=== PATIENT | female | born 1985 | race Caucasian/White ===

== ENCOUNTER 2024-09-25 23:23 | Inpatient (IN) | payer OTHER ==
--- OUTSIDE RECORDS SUMMARY | 2024-09-25 23:27 | XMS REPORT | Continuity of Care Document ---
Author Name Unknown Address [address] [place] [address] [facility] thconnect Address [address] [place] [address] Care Team Providers Care Production Tech Name Role Phone TYRA MILLER Primary Care Physician Unavailab le Tyra Miller Attending Clinician Unavailable RADIOLOGY Attending Clinician Unavailable Radiology Attending Clinician Unavailable TYRA MILLER Admitting Clinician Unavailable Payers Payer Name Policy Type Policy Number Effective Date Expirati on Date Source [employer] [id number] [facility] - OUT OF STATE [id number] 2023 00:00:00 Problems Condition Name Condition Details Condition Category Status Onset Date Resolution Date Last Treatment Date Treating Clinician Comments Source [id number] Mild episode of recurrent major depressive disorder Problem [facility] [id number] Mixed hyperlipid emia Problem [facility] [id number] Dysmenorrh ea Problem [facility] Hypothyroi dism Hypothyroi dism, unspecifie d type Problem [facility] [id number] Abnormal mammogram Problem [facility] Hyperglyce deshawn due to type 2 diabetes mellitus Type 2 diabetes mellitus with hyperglyce deshawn Problem [facility] Polyneurop athy due to type 2 diabetes 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 Problem [facility] [id number] Other chronic pain Problem [facility] [id number] Iron deficiency anemia due to chronic blood loss Problem [facility] Essential hypertensi on Essential (primary) hypertensi on Problem [facility] [id number] Fibromyalg ia Problem [facility] Allergies, Adverse Reactions, Alerts Allergy Name Allergy Type Status Severity Reaction(s) Onset Date Inactive Date Treating Clinician Comments Source NO KNOWN ALLERGIE S [facility]on amoxicil levon Active Unknown [facility] Social History Social Habit Start Date Stop Date Quantity Comments Source Sexual orientation U [facility] History of Tobacco Use [facility] Sex assigned at 1985 00:00:00 1985 00:00:00 [facility] Smoking Status Start Date Stop Date Source Tobacco smoking consumption unknown [facility] Never Smoker [facility] Medications Ordered Medication Name Filled Medication Name Start Date Stop Date Current Medication? Ordering Clinician Indication Dosage Frequency Signature (SIG) Comments Components Source Ferrous Sulfate 325 (65 Fe) MG Ferrous Sulfate 325 (65 Fe) MG 08-18 00:00: 00 No 1{table t} QD Ferrous Sulfate 325 (65 Fe) MG Gabapentin 300 MG Gabapentin 300 MG No 1{capsu le} QD Gabapentin 300 MG Amitriptyli ne HCl 25 MG Amitriptyli ne HCl 25 MG No 1{table t_at_be dtime} QD Amitriptyl ine HCl 25 MG Losartan Potassium 100 MG Losartan Potassium 100 MG No 1{table t} QD Losartan Potassium 100 MG Rexulti 1 mg Rexulti 1 mg No 1{table t} QD Rexulti 1 mg Droplet [place] 32G X 4 MM Droplet [place] 32G X 4 MM No Droplet [place] 32G X 4 MM Rosuvastati n Calcium 5 MG Rosuvastati n Calcium 5 MG No 1{table t} QD Rosuvastat in Calcium 5 MG Levothyroxi ne Sodium 25 MCG Levothyroxi ne Sodium 25 MCG No QD Levothyrox ine Sodium 25 MCG Mounjaro 15 MG/0.5ML Mounjaro 15 MG/0.5ML No Mounjaro 15 MG/0.5ML Metoprolol Succinate ER 50 MG Metoprolol Succinate ER 50 MG No 1{table t} QD Metoprolol Succinate ER 50 MG Lidocaine 5 % Lidocaine 5 % No Lidocaine 5 % metFORMIN HCl ER 500 mg metFORMIN HCl ER 500 mg No BID metFORMIN HCl ER 500 mg DULoxetine HCl 60 MG DULoxetine HCl 60 MG No 1{capsu le} QD DULoxetine HCl 60 MG Immunizations Ordered Immunization Name Filled Immunization Name Date Status Comments Source Fluarix (IIV4) - SDS - 0.5mL Fluarix (IIV4) - SDS - 0.5mL Unknown Completed [facility] Flucelvax (ccIIV4) - SDS - 0.5mL Flucelvax (ccIIV4) - SDS - 0.5mL Unknown Completed [facility] Adacel (Tdap) Adacel (Tdap) Unknown Completed [facility] Fluarix (IIV4) - SDS - 0.5mL Fluarix (IIV4) - SDS - 0.5mL Unknown Completed [facility] Flucelvax (ccIIV4) - SDS - 0.5mL Flucelvax (ccIIV4) - SDS - 0.5mL Unknown Completed [facility] Boostrix (Tdap) Boostrix (Tdap) Unknown Completed [facility] Fluarix (IIV4) - SDS - 0.5mL Fluarix (IIV4) - SDS - 0.5mL Unknown Completed [facility] Flucelvax (ccIIV4) - SDS - 0.5mL Flucelvax (ccIIV4) - SDS - 0.5mL Unknown Completed [facility] Boostrix (Tdap) Boostrix (Tdap) Unknown Completed [facility] Fluarix (IIV4) - SDS - 0.5mL Fluarix (IIV4) - SDS - 0.5mL Unknown Completed [facility] Flucelvax (ccIIV4) - SDS - 0.5mL Flucelvax (ccIIV4) - SDS - 0.5mL Unknown Completed [facility] Adacel (Tdap) Adacel (Tdap) Unknown Completed [facility] Fluarix (IIV4) - SDS - 0.5mL Fluarix (IIV4) - SDS - 0.5mL Unknown Completed [facility] Flucelvax (ccIIV4) - SDS - 0.5mL Flucelvax (ccIIV4) - SDS - 0.5mL Unknown Completed [facility] Boostrix (Tdap) Boostrix (Tdap) Unknown Completed [facility] Vital Signs Vital Name Observation Time Observation Value Comments S mariluce height 2024-07-19 09:20:00 66 [in_i] Commo n [facility] weight 2024-07-19 09:20:00 163 [lb_av] Comm on [facility] temperature 2024-07-19 09:20:00 97.3 [degF] Com [facility] bmi 2024-07-19 09:20:00 26.31 kg/m2 Comm on [facility] oximetry 2024-07-19 09:20:00 [facility] 09:20:00 16 /min [facility] blood pressure systolic 2024-07-19 09:20:00 120 mm[Hg] [facility] blood pressure diastolic 2024-07-19 09:20:00 70 mm[Hg] [facility] height 2024-05-31 09:20:00 66 [in_i] Commo n [facility] weight 2024-05-31 09:20:00 153 [lb_av] Comm on [facility] temperature 2024-05-31 09:20:00 97.1 [degF] Com [facility] bmi 2024-05-31 09:20:00 24.69 kg/m2 Comm on [facility] oximetry 2024-05-31 09:20:00 97 % Commo n [facility] respiratory rate 2024-05-31 09:20:00 16 /min [facility] blood pressure systolic 2024-05-31 09:20:00 112 mm[Hg] [facility] blood pressure diastolic 2024-05-31 09:20:00 78 mm[Hg] [facility] height 2024-05-31 09:20:00 66 [in_i] Commo n [facility] weight 2024-05-31 09:20:00 153 [lb_av] Comm on [facility] temperature 2024-05-31 09:20:00 97.1 [degF] Com [facility] bmi 2024-05-31 09:20:00 24.69 kg/m2 Comm on [facility] oximetry 2024-05-31 09:20:00 97 % Commo n [facility] respiratory rate 2024-05-31 09:20:00 16 /min Common [facility] blood pressure systolic 2024-05-31 09:20:00 112 mm[Hg] Common [facility] blood pressure diastolic 2024-05-31 09:20:00 78 mm[Hg] Common [facility] height 2024-04-12 09:00:00 66 [in_i] Commo n [facility] weight 2024-04-12 09:00:00 166 [lb_av] Comm on [facility] temperature 2024-04-12 09:00:00 97.5 [degF] Com [facility] bmi 2024-04-12 09:00:00 26.79 kg/m2 Comm on [facility] oximetry 2024-04-12 09:00:00 98 % Commo n [facility] respiratory rate 2024-04-12 09:00:00 16 /min Common [facility] blood pressure systolic 2024-04-12 09:00:00 120 mm[Hg] Common [facility] blood pressure diastolic 2024-04-12 09:00:00 64 mm[Hg] [facility] height 2024-02-20 08:40:00 66 [in_i] Commo n [facility] weight 2024-02-20 08:40:00 173.6 [lb_av] Co mmon [facility] temperature 2024-02-20 08:40:00 97.8 [degF] Com [facility] bmi 2024-02-20 08:40:00 28.02 kg/m2 Comm on [facility] oximetry 2024-02-20 08:40:00 98 % Commo n [facility] respiratory rate 2024-02-20 08:40:00 16 /min [facility] blood pressure systolic 2024-02-20 08:40:00 118 mm[Hg] [facility] blood pressure diastolic 2024-02-20 08:40:00 82 mm[Hg] [facility] height 2023-11-14 08:40:00 66 [in_i] Commo n [facility] weight 2023-11-14 08:40:00 177 [lb_av] Comm on [facility] temperature 2023-11-14 08:40:00 97.6 [degF] Com [facility] bmi 2023-11-14 08:40:00 28.57 kg/m2 Comm on [facility] oximetry 2023-11-14 08:40:00 98 % Commo n [facility] respiratory rate 2023-11-14 08:40:00 16 /min [facility] blood pressure systolic 2023-11-14 08:40:00 124 mm[Hg] [facility] blood pressure diastolic 2023-11-14 08:40:00 66 mm[Hg] [facility] height 2023-08-18 08:40:00 66 [in_i] Commo n [facility] weight 2023-08-18 08:40:00 199 [lb_av] Comm on [facility] temperature 2023-08-18 08:40:00 97.8 [degF] Com [facility] bmi 2023-08-18 08:40:00 32.12 kg/m2 Comm on [facility] oximetry 2023-08-18 08:40:00 99 % Commo n [facility] respiratory rate 2023-08-18 08:40:00 16 /min [facility] blood pressure systolic 2023-08-18 08:40:00 121 mm[Hg] Common [facility] blood pressure diastolic 2023-08-18 08:40:00 60 mm[Hg] Common [facility] height 2023-05-18 08:40:00 66 [in_i] Commo n [facility] weight 2023-05-18 08:40:00 199 [lb_av] Comm on [facility] temperature 2023-05-18 08:40:00 97.6 [degF] Com [facility] bmi 2023-05-18 08:40:00 32.12 kg/m2 Comm on [facility] oximetry 2023-05-18 08:40:00 99 % Commo n [facility] respiratory rate 2023-05-18 08:40:00 16 /min [facility] blood pressure systolic 2023-05-18 08:40:00 123 mm[Hg] Common [facility] blood pressure diastolic 2023-05-18 08:40:00 71 mm[Hg] [facility] Procedures Procedure Date / Time Performed Performing Clinicia n Source BI ULTRASOUND BREAST COMPLETE LEFT 2024-02-28 13:52:55 Requisition, Paper [facility] Encounters Start Date/Time End Date/Time Encounter Type Admission Type Attending [facility] Care Facility Care Department Encounter ID Source 2024-09-20 15:49:00 Outpatient Tyra Miller STLMLC [id number] [facility] 2024-08-27 13:22:01 Outpatient Tyra Miller STLML[facility] [id number] [facility] 2024-08-09 13:57:00 Outpatient Tyra Miller STLMLC STL[facility] [id number] [facility] 2024-07-17 08:36:00 Outpatient Tyra Miller STLMLC STL[facility]C [id number] [facility] 2024-05-29 09:15:00 Outpatient Tyra Miller STLMLC STL[facility]C [id number] [facility] 2024-03-28 10:16:01 Outpatient Tyra Miller STLMLC STLMLC [id number] [facility] 2024-03-26 15:46:00 Outpatient Tyra Miller STLMLC STL[facility] [id number] [facility] 2024-02-16 14:42:00 Outpatient Tyra Miller STLMLC STL[facility]C [id number] [facility] 2023-11-10 10:58:00 Outpatient Tyra Miller STLMLC STLMLC [id number] [facility] 2023-08-16 10:10:01 Outpatient Tyra Miller STLMLC STLMLC [id number] [facility] 2023-05-18 08:36:00 Outpatient Tyra Miller STLMLC STLMLC [id number] [facility] 2024-09-20 00:00:00 2024-09-20 00:00:00 (TEL) STLMLC STLMLC [id number] [facility] 2024-08-09 00:00:00 2024-08-09 00:00:00 (TEL) STLMLC STLMLC [id number] [facility] 2024-07-19 00:00:00 2024-07-19 00:00:00 OFFICE VISIT ESTAB PT LEVEL 4 STLMLC STLMLC [id number] [facility] 2024-07-19 00:00:00 2024-07-19 00:00:00 (TEL) STLMLC STLMLC [id number] [facility] 2024-05-31 00:00:00 2024-05-31 00:00:00 OFFICE VISIT ESTAB PT LEVEL 4 STLMLC STLMLC [id number] [facility] 2024-04-22 00:00:00 2024-04-22 00:00:00 (TEL) STLMLC STLMLC [id number] [facility] 2024-04-15 00:00:00 2024-04-15 00:00:00 (TEL) STLMLC STLMLC [id number] [facility] 2024-04-12 00:00:00 2024-04-12 00:00:00 OFFICE VISIT ESTAB PT LEVEL 4 STLMLC STLMLC [id number] [facility] 2024-02-28 08:27:58 2024-02-28 23:59:00 Outpatient R RADIOLOGY [facility] [id number] [facility] 2024-02-28 08:27:58 2024-02-28 23:59:00 Hospital Encounter Radiology [facility] [id number] [facility] 2024-02-20 00:00:00 2024-02-20 00:00:00 OFFICE VISIT ESTAB PT LEVEL 4 STLMLC STLMLC [id number] [facility] 2024-02-14 00:00:00 2024-02-14 00:00:00 (TEL) STLMLC STLMLC [id number] [facility] 2024-02-06 00:00:00 2024-02-06 00:00:00 (TEL) STLMLC STLMLC [id number] [facility] 2024-01-31 00:00:00 2024-01-31 00:00:00 (TEL) STLMLC STLMLC [id number] [facility] 2024-01-16 00:00:00 2024-01-16 00:00:00 (TEL) STLMLC STLMLC [id number] [facility] 2024-01-09 00:00:00 2024-01-09 00:00:00 (TEL) STLMLC STLMLC [id number] [facility] 2024-01-05 00:00:00 2024-01-05 00:00:00 (TEL) STLMLC STLMLC [id number] [facility] 2023-12-15 00:00:00 2023-12-15 00:00:00 (TEL) STLMLC STLMLC [id number] [facility] 2023-11-14 00:00:00 2023-11-14 00:00:00 OFFICE VISIT ESTAB PT LEVEL 4 STLMLC STLMLC [id number] [facility] 2023-08-18 00:00:00 2023-08-18 00:00:00 (ESTPTWM) Establishe d PT Women STLMLC STLMLC [id number] [facility] 2023-08-14 00:00:00 2023-08-14 00:00:00 (TEL) STLMLC STLMLC [id number] [facility] 2023-05-18 00:00:00 2023-05-18 00:00:00 OFFICE VISIT ESTAB PT LEVEL 4 STLMLC STLMLC [id number] [facility] Results Test Description Test Time Test Comments Results Result Co mments Source TSH + FREE T4 [id number] 00:00:00* Test Item Value Reference Range Interpretation Comme nts FREE T4 (THYROXINE) (test code = 3024-7) 1.31 NG/DL See_Comment [Automated message] The system which generated this result transmitted reference range: 0.80-1.90 NG/DL. The reference range was not used to interpret this result as normal/abnormal. TSH, THIRD GENERATION (test code = 52790-7) 0.069 UIU/ML See_Comment L [Automated Blottr] The system which generated this result transmitted reference range: 0.400-4.100 UIU/ML. The reference range was not used to interpret this result as normal/abnormal. ALBUMIN/CREATININE RATIO, RANDOM [id number] 00:00:00* Test Item Value Reference Range Interpretation Comme nts ALBUMIN, URINE, RANDOM (test code = 09766-8) TEST NOT PERFORMED MG/DL NOT ESTAB MG/DL CALC ALBUMIN/CREAT, RND (test code = 67118-4) TEST NOT PERFORMED MG/G See_Comment [Automated message] The system which generated this result transmitted reference range: <30 MG/G. The reference range was not used to interpret this result as normal/abnormal. CREATININE, URINE, CONC. (test code = 2161-8) TEST NOT PERFORMED MG/DL NOT ESTAB MG/DL BI ULTRASOUND BREAST COMPLETE [id number] 14:33:29Examination:BI ULTRASOUND BREAST COMPLETE LEFT History:Patient is 38 year old and is seen for: ?Abnormal mammogram. Comparisons : None available Findings:LeftSurvey ultrasound was performed. ?There is no evidence of suspicious masses or other abnormal findings in the left breast. A ridge of fibroglandular normal breast tissue was noted in the upper outer quadrant, this favored to correlate with the outside mammographic finding. Ultrasound of the axillae demonstrates morphologically normal lymphnodes. Impression:There is no sonographic evidence of malignancy. Recommendation:Annual mammographic follow-upThese findings and recommendations were discussed in detail with the patient at the time of this exam. BI-RADS Category:[facility]
[2024-09-26] MEDS ORDERED: ONDANSETRON 4 MG/2 ML VIAL ONE ×3 (00:06→15:59)
[2024-09-26] MEDS ORDERED: FAMOTIDINE 20 MG/2 ML VIAL IV ONE (00:06)
[2024-09-26] MEDS ORDERED: NA CHLORIDE 0.9% 1,000 ML ONE ×3 (00:07→04:28)
[2024-09-26 00:33] LABS: Absolute Basophils 0.1 K/uL (0-0.5); Absolute Eosinophils 0.2 K/uL (0-0.5); Absolute Lymphocytes (CBC) 3.2 K/uL (0.7-4.9); Absolute Monocytes 0.7 K/uL (0.1-1.3); Absolute Neutrophil 7.2 K/uL (1.8-8.0); Basophils % 1.1 % (0-1.3); Eosinophils % 1.5 % (0-4.4); Hemoglobin 14.3 g/dL (12.0-15.0); MCH 28.2 pg (27.0-35.0); MPV 7.7 fL (7.6-11.3); Monocytes % 6.4 % (3.3-12.3); Nucleated Red Blood Cells % 0.1 % (0-0); Platelets 444 thou/uL (152-406); RBC Red Blood Cell Count 5.06 M/uL (3.86-4.86); Red Cell Distribution Width 13.3 % (12.1-15.2)
[2024-09-26 00:42] LABS: Specific Gravity 1.024 (1.005-1.030); Sqamous Epithelial <5 /HPF (None Seen); Urine Bacteria <20 /HPF (<20); Urine Bilirubin NEGATIVE (Negative); Urine Blood Negative (Negative); Urine Clarity Turbid (Clear); Urine Color Yellow (Yellow); Urine Culture Reflex Order NOT NEEDED; Urine Glucose NEGATIVE (Negative); Urine Ketones NEGATIVE (Negative); Urine Microscopic Reflex YN ORDER UMIC; Urine Mucus Slight /HPF (None Seen); Urine Nitrite NEGATIVE (Negative); Urine Protein TRACE (Negative); Urine RBC None Seen /HPF (None Seen); Urine Urobilinogen 1+ (Normal); Urine WBC <5 /HPF (<5)
[2024-09-26 00:43] LABS: Specific Gravity 1.024 (1.005-1.030)
[2024-09-26 00:44] LABS: Albumin 4.1 g/dL (3.4-5.0); Albumin/Globulin Ratio 0.9 (1.1-1.8); Anion Gap 11.3 mEq/L (5.0-15.0); Bilirubin Total 0.4 mg/dL (0.2-1.0); Globulin 4.6 g/dL (2.3-3.5); Potassium 3.3 mEq/L (3.5-5.1); Protein, Total 8.7 g/dL (6.4-8.2)
[2024-09-26] MEDS ORDERED: MORPHINE 4 MG/ML SYR ONE ×2 (01:00→01:28)
--- NOTE | 2024-09-26 01:21 | RAD REPORT ---
Clinical Indication: Bed Name: 4; ABD PAIN Comparison: None TECHNIQUE: Grayscale and limited color sonographic evaluation of the right upper quadrant of the abdomen and gal lbladder region was performed with standard technique. FINDINGS: LIVER: The visualized liver shows normal contour, size, and morphology with normal parenchymal echo texture. The right liver measures 15.4 cm in length. Color Doppler demonstrates the portal vein to be patent with hepatopedal flow. BILE DUCTS: The intrahepatic and extrahepatic bile ducts are not dilated with the common bile duct measuring 3. 5 mm. The distal common bile duct is not well seen. GALLBLADDER: Multiple shadowing echogenic foci are noted within the gallbladder. This is consistent with gallstone s. A small amount of layering echogenic debris is also noted, consistent with sludge. No pericholecystic fluid is noted.. The gallbladder wall measures 2.6 mm in thickness. No sonographic Mu rphy sign was elicited during this exam.. ASCITES: There is no right upper quadrant abdominal ascites. IMPRESSION: 1. Cholelithiasis without sonographic evidence of acute cholecystitis. Electronically signed by: Wolf Reyes MD 09/26/2024 01:18 AM [facility] Due to temporary technical issues with the PACS/PressBaby scribe reporting system, reports are being signed by the in-house radiologist without review as a courtesy to ensure prompt reporting the interpreting radiologist is fully responsible for the content of the report. Transcribed Date/Time: 09/26/2024 1:21 AM
[2024-09-26] MEDS ORDERED: METOCLOPRAMIDE 10 MG/2mL INJ ONE ×2 (01:28→15:59)
--- NOTE | 2024-09-26 02:44 | RAD REPORT ---
EXAM: CT Abdomen and Pelvis With Intravenous Contrast CLINICAL HISTORY: The patient is 38 years old and is Female; ABD PAIN TECHNIQUE: Axial computed tomography images of the abdomen and pelvis with intravenous contrast. Sagittal an d coronal reformatted images were created and reviewed. This CT exam was performed using one or more of the following dose reduction techniques: automated exposure control, adjustment of the mA a nd/or kV according to patient size, and/or use of iterative reconstruction technique. COMPARISON: Ultrasound performed the same day. FINDINGS: LUNG BASES: Unremarkable. No mass. No consolidation. HEART: A trace pericardial effusion is present. ABDOMEN: LIVER: Unremarkable. No mass. GALLBLADDER AND BILE DUCTS: The gallbladder is distended. Gallstone is present. There is no ducta l dilatation. PANCREAS: No ductal dilation. No mass. SPLEEN: Unremarkable. ADRENALS: Unremarkable. No mass. KIDNEYS AND URETERS: Bilateral nonspecific perinephric stranding is present. The kidneys enhance symmetrically and are without hydronephrosis or hydroureter. No obstructing calculus is seen. STOMACH AND BOWEL: The stomach is distended with fluid and air. The small bowel is normal in janae fish. Stool is present throughout the colon. There is no mucosal thickening or evidence of obstruction. PELVIS: APPENDIX: The appendix is normal in caliber without surrounding inflammation. BLADDER: Unremarkable. No mass. REPRODUCTIVE: A 2.9 cm right ovarian cyst is present. No follow-up imaging is recommended. The ut erus and left ovary are normal. ABDOMEN and PELVIS: INTRAPERITONEAL SPACE: Unremarkable. No free air. No significant fluid collection. BONES/JOINTS: No acute fracture. SOFT TISSUES: The soft tissues are normal. VASCULATURE: Unremarkable. No abdominal aortic aneurysm. LYMPH NODES: Unremarkable. No enlarged lymph nodes. IMPRESSION: 1. Cholelithiasis without CT evidence to suggest cholecystitis. 2. Otherwise, no acute findings on this contrasted CT of the abdomen and pelvis to explain the zuleyma ent's symptoms. Electronically signed by: Caroline Sutherland MD 09/26/2024 02:39 AM [facility] Due to temporary technical issues with the PACS/[employer] reporting system, reports are being carlyle d by the in-house radiologist without review as a courtesy to ensure prompt reporting the interpreting radiologist is fully responsible for the content of the report. Transcribed Date/Time: 09/26/2024 2:43 AM
[2024-09-26] MEDS ORDERED: KETOROLAC 30 MG/ML INJ ONE ×2 (02:52→15:58)
--- NOTE | 2024-09-26 03:10 | EDPHYS ---
Physician Documentation [facility] Name: Vicente Drummond Age: 38 yrs Sex: Female : 1985 Arrival Date: 09/25/2024 Time: 23:23 Bed 4 Private MD: ED Physician Haile Nicole HPI: 09/25 23:29 This 38 yrs old Female presents to ER via Unassigned with complaints of RT sp4 SIDED BACK PAIN. 09/26 02:37 38-year-old female presents with acute moderate to severe right flank right upper sp4 quadrant pain associated with vomiting. Patient states that she was at the [facility] 09/20/2024 and was diagnosed with cholelithiasis. . 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 - Infectious Disease History:: Denies. - Social history:: Smoking status: Patient denies any tobacco usage or history of. - Family history:: not pertinent. ROS: 02:37 Constitutional: Negative for fever, chills, and weight loss, positive for right sp4 upper quadrant pain right back pain right flank pain positive for vomiting 02:37 All other systems are negative, Exam: 02:37 Constitutional: This is a well developed, well nourished patient who is awake, alert, sp4 and in no acute distress. Head/Face: Normocephalic, atraumatic. Eyes: Pupils equal round and reactive to light, extra-ocular motions intact. Lids and lashes normal. Conjunctiva and sclera are not injected. Cornea within normal limits. Periorbital areas with no swelling, redness, or edema. ENT: Nares patent. No nasal discharge, no septal abnormalities noted. Tympanic membranes are normal and external auditory canals are clear. Oropharynx with no redness, swelling, or masses, exudates, or evidence of obstruction, uvula midline. Mucous membranes moist. Neck: Trachea midline, no thyromegaly or masses palpated, and no cervical lymphadenopathy. Supple, full range of motion without nuchal rigidity, or vertebral point tenderness. Chest/axilla: Normal chest wall appearance and motion. Nontender with no deformity. No lesions are appreciated. Cardiovascular: Regular rate and rhythm with a normal S1 and S2. No gallops, murmurs, or rubs. Normal PMI, no JVD. No pulse deficits. Respiratory: Lungs have equal breath sounds bilaterally, clear to auscultation and percussion. No rales, rhonchi or wheezes noted. No increased work of breathing, no retractions or nasal flaring. Abdomen/GI: Soft, with normal bowel sounds. No distension or tympany. No guarding or rebound. Positive for right upper quadrant abdominal tenderness Back: No spinal tenderness. No costovertebral tenderness. Skin: Warm, dry with normal turgor. Normal color with no rashes, no lesions, and no evidence of cellulitis. MS/ Extremity: Pulses equal, no cyanosis. Neurovascular intact. Full, normal range of motion. Neuro: Awake and alert, GCS 15, oriented to person, place, time, and situation. Cranial nerves II-XII grossly intact. Motor strength 5/5 in all extremities. Sensory grossly intact. Vital Signs: 09/25 23:44 BP 179 / 114; Pulse 85; Resp 18; Temp 97.8; Pulse Ox 100% ; Weight 65.77 kg; Height 5 bm8 ft. 6 in. ; Pain 10/10; 09/26 01:09 BP 174 / 106; Pulse 76; Resp 18; Temp 97.8; Pulse Ox 100% ; Pain 9/10; bm8 01:52 BP 157 / 87; Pulse 90; Resp 18; Temp 97.8; Pulse Ox 99% ; Pain 2/10; bm8 09/25 23:44 Body Mass Index 23.40 (65.77 kg, 167.64 cm) bm8 09/25 23:44 Pain Scale: Adult bm8 09/26 01:09 Pain Scale: Adult bm8 01:52 Pain Scale: Adult bm8 Krista Coma Score: 00:23 Eye Response: spontaneous(4). Motor Response: obeys commands(6). Verbal Response: bm8 oriented(5). Total: 15. 01:09 Eye Response: spontaneous(4). Motor Response: obeys commands(6). Verbal Response: bm8 oriented(5). Total: 15. 01:52 Eye Response: spontaneous(4). Motor Response: obeys commands(6). Verbal Response: bm8 oriented(5). Total: 15. 02:37 Eye Response: spontaneous(4). Motor Response: obeys commands(6). Verbal Response: sp4 oriented(5). Total: 15. MDM: 02:21 ED course: Clinical Indication: Bed Name: 4; ABD PAIN Comparison: None TECHNIQUE: sp4 Grayscale and limited color sonographic evaluation of the right upper quadrant of the abdomen and gallbladder region was performed with standard technique. FINDINGS: LIVER: The visualized liver shows normal contour, size, and morphology with normal parenchymal echo texture. The right liver measures 15.4 cm in length. Color Doppler demonstrates the portal vein to be patent with hepatopedal flow. BILE DUCTS: The intrahepatic and extrahepatic bile ducts are not dilated with the common bile duct measuring 3.5 mm. The distal common bile duct is not well seen. GALLBLADDER: Multiple shadowing echogenic foci are noted within the gallbladder. This is consistent with gallstones. A small amount of layering echogenic debris is also noted, consistent with sludge. No pericholecystic fluid is noted.. The gallbladder wall measures 2.6 mm in thickness. No sonographic Brady sign was elicited during this exam.. ASCITES: There is no right upper quadrant abdominal ascites. IMPRESSION: 1. Cholelithiasis without sonographic evidence of acute cholecystitis. . 03:09 Medical Screening Exam initiated sp4 03:10 ED course: EXAM: CTAbdomen and Pelvis With Intravenous Contrast CLINICAL HISTORY: The sp4 patient is 38 years old and is Female; ABD PAIN TECHNIQUE: Axial computed tomography images of the abdomen and pelvis with intravenous contrast. Sagittal and coronal reformatted images were created and reviewed. This CT exam was performed using one or more of the following dose reduction techniques: automated exposure control, adjustment of the mA and/or kV according to patient size, and/or use of iterative reconstruction technique. COMPARISON: Ultrasound performed the same day. FINDINGS: LUNG BASES: Unremarkable. No mass. No consolidation. HEART: A trace pericardial effusion is present. ABDOMEN: LIVER: Unremarkable. No mass. GALLBLADDER AND BILE DUCTS: The gallbladder is distended. Gallstone is present. There is no ductal dilatation. PANCREAS: No ductal dilation. No mass. SPLEEN: Unremarkable. ADRENALS: Unremarkable. No mass. KIDNEYS AND URETERS: Bilateral nonspecific perinephric stranding is present. The kidneys enhance symmetrically and are without hydronephrosis or hydroureter. No obstructing calculus is seen. STOMACH AND BOWEL: The stomach is distended with fluid and air. The small bowel is normal in caliber. Stool is present throughout the colon. There is no mucosal thickening or evidence of obstruction. PELVIS: APPENDIX: The appendix is normal in caliber without surrounding inflammation. BLADDER: Unremarkable. No mass. REPRODUCTIVE: A 2.9 cm right ovarian cyst is present. No follow-up imaging is recommended. The uterus and left ovary are normal. ABDOMEN and PELVIS: INTRAPERITONEAL SPACE: Unremarkable. No free air. No significant fluid collection. BONES/JOINTS: No acute fracture. SOFT TISSUES: The soft tissues are normal. VASCULATURE: Unremarkable. No abdominal aortic aneurysm. LYMPH NODES: Unremarkable. No enlarged lymph nodes. IMPRESSION: 1. Cholelithiasis without CT evidence to suggest cholecystitis. 2. Otherwise, no acute findings on this contrasted CT of the abdomen and pelvis to explain the patient's symptoms. . 03:10 Differential diagnosis: arthritis, Cholelithiasis Myeloma Neoplasm Obesity sp4 Osteoarthritis. Data reviewed: vital signs, nurses notes, lab test result(s), radiologic studies, CT scan, ultrasound. Consideration of Admission/Observation Patient was admitted/placed on observation. Escalation of care including admission/observation considered. Management of patient was discussed with the following: Hospitalist: Tony ROCHA . Radiology Nurse: Janene Blackburn MD . ED course: Patient stable for admission with n.p.o. for assessment by general surgeon. 09/25 23:50 Order name: CBC with Diff; Complete Time: sp4 09/25 23:50 Order name: CMP; Complete Time: sp4 09/25 23:50 Order name: Lipase; Complete Time: sp4 09/25 23:50 Order name: Test, Urine; Complete Time: sp4 09/25 23:50 Order name: Urinalysis w/ reflexes; Complete Time: sp4 09/26 03:21 Order name: Urinalysis w/ reflexes EDMS 09/26 03:21 Order name: CBC with Automated Diff EDMS 09/26 03:21 Order name: CBC with Automated Diff EDMS 09/26 03:21 Order name: Comprehensive Metabolic Panel EDMS 09/26 03:21 Order name: Comprehensive Metabolic Panel EDMS 09/26 03:21 Order name: Magnesium EDMS 09/26 03:21 Order name: Magnesium EDMS 09/26 03:30 Order name: Thyroid Stimulating Hormone EDMS 09/26 03:30 Order name: Thyroid Stimulating Hormone EDMS 09/26 09:04 Order name: Glucose, Ancillary Testing EDMS 09/25 23:50 Order name: CT Abd/Pelvis - IV Contrast Only sp4 09/25 23:50 Order name: US Abdomen Limited sp4 09/25 23:50 Order name: IV Saline Lock; Complete Time: 00:24 sp4 09/25 23:50 Order name: Labs collected and sent; Complete Time: 00:25 sp4 09/26 02:41 Order name: NPO; Complete Time: 02:56 sp4 Administered Medications: 00:24 Drug: Famotidine IVP 20 mg IVP once; dilute with 10 mL 0.9% NaCl; give over 2 minutes bm8 Route: IVP; Site: right antecubital; 01:53 Follow up: Response: No adverse reaction bm8 00:24 Drug: Ondansetron IVP 4 mg IVP once; over 2 minutes Route: IVP; Site: right antecubital;bm8 01:53 Follow up: Response: No adverse reaction bm8 00:24 Drug: NS 0.9% IV 1000 ml IV at 1 bolus Per protocol; to be given as a bolus over 60 bm8 minutes Route: IV; Rate: 1 bolus; Site: right antecubital; 01:53 Follow up: Response: No adverse reaction; IV Status: Completed infusion; IV Intake: bm8 1000ml 01:08 Drug: Ondansetron IVP 4 mg IVP once; over 2 minutes Route: IVP; Site: right antecubital;bm8 01:53 Follow up: Response: No adverse reaction bm8 01:09 Drug: morphine IVP or IV 4 mg IVP once over 4 mins Route: IVP; Infused Over: 4 mins; bm8 Site: right antecubital; 01:53 Follow up: Response: No adverse reaction bm8 01:35 Drug: morphine IVP or IV 4 mg IVP once over 4 mins Route: IVP; Infused Over: 4 mins; bm8 Site: right antecubital; 01:53 Follow up: Response: No adverse reaction bm8 01:35 Drug: metoCLOPramide IVP 10 mg IVP once; over 1 to 2 minutes Route: IVP; Site: right bm8 antecubital; 01:53 Follow up: Response: No adverse reaction bm8 03:01 Drug: Ketorolac IVP 30 mg IVP once Route: IVP; Site: right antecubital; al5 04:01 Follow up: Response: No adverse reaction bm8 03:01 Drug: NS 0.9% IV 1000 ml IV at 125 ml/hr Per protocol; to be given as a bolus over 60 al5 minutes Route: IV; Rate: 125 ml/hr; Site: right antecubital; 04:01 Follow up: Response: No adverse reaction; IV Status: Infusion continued upon admission bm8 Disposition Summary: 09/26/24 03:09 Hospitalization Ordered Notes: Hospitalization Status: Observation sp4 Provider: Martha Jimenez sp4 Condition: Stable sp4 Problem: new sp4 Symptoms: have improved sp4 Bed/Room Type: Standard sp4 Location: Telemetry/MedSurg (observation)(09/26/24 13:49) [facility] Room Assignment: [facility](09/26/24 13:49) [facility] Diagnosis - Other cholelithiasis without obstruction sp4 - Cholelithiasis without cholecystitis, moderate to severe right upper abdominal sp4 pain, biliary colic Forms: - Medication Reconciliation Form sp4 - SBAR form sp4 - Leadership Thank You Letter sp4 Signatures: Dispatcher [employer] EDMS Monica Blandon RN RN vc1 Joya Parish bc6 Haile Nicole MD MD sp4 Grady Thomas, RN RN bm8 Ijeoma Lay RN RN al5 Corrections: (The following items were deleted from the chart) 09/25 23:51 23:51 Abdomen Pelvis W Con+CT.RAD.BRZ ordered. EDMS EDMS 23:51 23:51 Abdomen Limited+US.RAD.BRZ ordered. EDMS EDMS 09/26 00:18 00:16 Allergies: No Known Allergies; bm8 bm8 04:00 03:09 Telemetry/MedSurg (observation) sp4 vc1 04:00 03:09 sp4 vc1 13:49 04:00 BR ER HOLD vc1 bc6 13:49 04:00 ERHOLD- vc1 bc6
--- NOTE | 2024-09-26 03:10 | ER ---
Nurse's Notes [facility] Name: Vicente Drummond Age: 38 yrs Sex: Female : 1985 Arrival Date: 09/25/2024 Time: 23:23 Bed 4 Private MD: Diagnosis: Other cholelithiasis without obstruction;Cholelithiasis without cholecystitis, moderate to severe right upper abdominal pain, biliary colic Presentation: 09/25 23:44 Chief complaint: Patient states: I have right sided back pain that radiates the front. bm8 23:44 Coronavirus screen: At this time, the client does not indicate any symptoms associated bm8 with coronavirus-19. Ebola Screen: Patient negative for fever greater than or equal to 101.5 degrees Fahrenheit, and additional compatible Ebola Virus Disease symptoms Patient denies exposure to infectious person. Patient denies travel to an Ebola-affected area in the 21 days before illness onset. No symptoms or risks identified at this time. Initial Sepsis Screen: Does the patient meet any 2 criteria? No. Patient's initial sepsis screen is negative. Does the patient have a suspected source of infection? No. Patient's initial sepsis screen is negative. Risk Assessment: Do you want to hurt yourself or someone else? Patient reports no desire to harm self or others. Onset of symptoms is unknown. 23:44 Method Of Arrival: Ambulatory bm8 23:44 Acuity: JONATHAN 3 bm8 Triage Assessment: 23:44 General: Appears distressed, uncomfortable, Behavior is calm, cooperative, appropriate bm8 for age. Pain: Complains of pain in right mid back, posterior aspect of right lateral abdomen, anterior aspect of right lateral abdomen and right upper quadrant Pain radiates to right mid back Pain currently is 10 out of 10 on a pain scale. EENT: No deficits noted. No signs and/or symptoms were reported regarding the EENT system. Neuro: No deficits noted. Level of Consciousness is awake, alert, obeys commands, Oriented to person, place, time, situation, Appropriate for age. Cardiovascular: Denies chest pain, Heart tones S1 S2 present Capillary refill < 3 seconds in bilateral fingers Patient's skin is warm and dry. Respiratory: Airway is patent Respiratory effort is even, unlabored, Respiratory pattern is regular, symmetrical, Breath sounds are clear bilaterally. GI: Abdomen is flat, non-distended, Bowel sounds present X 4 quads. Abdomen is tender to palpation in right upper quadrant Reports upper abdominal pain, nausea, Pain is 10 out of 10 on a pain scale. vomiting. : No signs and/or symptoms were reported regarding the genitourinary system. Musculoskeletal: No signs and/or symptoms reported regarding the musculoskeletal system. 23:44 Derm: No signs and/or symptoms reported regarding the dermatologic system. 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 - Infectious Disease History:: Denies. - Social history:: Smoking status: Patient denies any tobacco usage or history of. - Family history:: not pertinent. Screenin:23 [facility] ED Fall Risk Assessment (Adult) History of falling in the last 3 months, bm8 including since admission No falls in past 3 months (0 pts) Confusion or Disorientation No (0 pts) Intoxicated or Sedated No (0 pts) Impaired Gait No (0 pts) Mobility Assist Device Used No (0 pt) Altered Elimination No (0 pt) Score/Fall Risk Level 0 - 2 = Low Risk Oriented to surroundings, Maintained a safe environment, Educated pt \T\ family on fall prevention, incl call for assistance when getting out of bed, Assessed \T\ reinforced patient's understanding of fall precautions, Hourly rounding (assess needs \T\ fall precautionary measures) done, Used ambulatory aids as needed (educated on \T\ assisted with), Used gait belt as appropriate. Abuse screen: Denies threats or abuse. Nutritional screening: No deficits noted. Tuberculosis screening: No symptoms or risk factors identified. Assessment: 00:23 Reassessment: see triage assessment. bm8 01:09 Reassessment: pt reports continued abd pain and nausea despite medications given bm8 earlier. Provider informed and new orders received. 01:52 Reassessment: Patient appears in no apparent distress at this time. Patient and/or bm8 family updated on plan of care and expected duration. Pain level reassessed. Patient is alert, oriented x 3, equal unlabored respirations, skin warm/dry/pink. Patient states feeling better. Patient states symptoms have improved. Pain: Complains of pain in abdomen Pain currently is 2 out of 10 on a pain scale. Vital Signs: 09/25 23:44 BP 179 / 114; Pulse 85; Resp 18; Temp 97.8; Pulse Ox 100% ; Weight 65.77 kg; Height 5 bm8 ft. 6 in. ; Pain 05/16; 09/26 01:09 BP 174 / 106; Pulse 76; Resp 18; Temp 97.8; Pulse Ox 100% ; Pain 9/10; bm8 01:52 BP 157 / 87; Pulse 90; Resp 18; Temp 97.8; Pulse Ox 99% ; Pain 2/10; bm8 09/25 23:44 Body Mass Index 23.40 (65.77 kg, 167.64 cm) bm8 09/25 23:44 Pain Scale: Adult bm8 09/26 01:09 Pain Scale: Adult bm8 01:52 Pain Scale: Adult bm8 Almena Coma Score: 00:23 Eye Response: spontaneous(4). Motor Response: obeys commands(6). Verbal Response: bm8 oriented(5). Total: 15. 01:09 Eye Response: spontaneous(4). Motor Response: obeys commands(6). Verbal Response: bm8 oriented(5). Total: 15. 01:52 Eye Response: spontaneous(4). Motor Response: obeys commands(6). Verbal Response: bm8 oriented(5). Total: 15. 02:37 Eye Response: spontaneous(4). Motor Response: obeys commands(6). Verbal Response: sp4 oriented(5). Total: 15. ED Course: 09/25 23:26 Patient arrived in ED. jj6 23:29 Haile Nicole MD is Attending Physician. sp4 23:44 Arm band placed on right wrist. bm8 09/26 00:16 Triage completed. bm8 00:16 Grady Thomas, RN is Primary Nurse. bm8 00:23 Patient has correct armband on for positive identification. Placed in gown. Bed in low bm8 position. Call light in reach. Side rails up X 1. Client placed on continuous cardiac and pulse oximetry monitoring. NIBP monitoring applied. Pulse ox on. NIBP on. Door closed. Noise minimized. Warm blanket given. Pillow given. Verbal reassurance given. Head of bed elevated. 00:23 No provider procedures requiring assistance completed. Initial lab(s) drawn, by nyasia farr sent to lab. Urine collected: clean catch specimen, clear. Inserted saline lock: 20 gauge in right antecubital area, using aseptic technique. Blood collected. Flushed with 10 mL NS. Patient maintains SpO2 saturation greater than 95% on room air. 00:29 US Abdomen Limited In Process Unspecified. EDMS 01:23 CT Abd/Pelvis - IV Contrast Only In Process Unspecified. EDMS 03:07 Martha Jimenez MD is Hospitalizing Provider. 4 04:53 Provided Education on: need for admission. bm8 04:53 Patient admitted, IV remains in place. bm8 Administered Medications: 00:24 Drug: Famotidine IVP 20 mg IVP once; dilute with 10 mL 0.9% NaCl; give over 2 minutes bm8 Route: IVP; Site: right antecubital; :53 Follow up: Response: No adverse reaction bm8 00:24 Drug: Ondansetron IVP 4 mg IVP once; over 2 minutes Route: IVP; Site: right antecubital;bm8 01:53 Follow up: Response: No adverse reaction bm8 00:24 Drug: NS 0.9% IV 1000 ml IV at 1 bolus Per protocol; to be given as a bolus over 60 bm8 minutes Route: IV; Rate: 1 bolus; Site: right antecubital; :53 Follow up: Response: No adverse reaction; IV Status: Completed infusion; IV Intake: bm8 1000ml 01:08 Drug: Ondansetron IVP 4 mg IVP once; over 2 minutes Route: IVP; Site: right antecubital;bm8 01:53 Follow up: Response: No adverse reaction bm8 01:09 Drug: morphine IVP or IV 4 mg IVP once over 4 mins Route: IVP; Infused Over: 4 mins; bm8 Site: right antecubital; :53 Follow up: Response: No adverse reaction bm8 01:35 Drug: morphine IVP or IV 4 mg IVP once over 4 mins Route: IVP; Infused Over: 4 mins; bm8 Site: right antecubital; 01:53 Follow up: Response: No adverse reaction bm8 01:35 Drug: metoCLOPramide IVP 10 mg IVP once; over 1 to 2 minutes Route: IVP; Site: right bm8 antecubital; :53 Follow up: Response: No adverse reaction bm8 03:01 Drug: Ketorolac IVP 30 mg IVP once Route: IVP; Site: right antecubital; al5 04:01 Follow up: Response: No adverse reaction bm8 03:01 Drug: NS 0.9% IV 1000 ml IV at 125 ml/hr Per protocol; to be given as a bolus over 60 al5 minutes Route: IV; Rate: 125 ml/hr; Site: right antecubital; 04:01 Follow up: Response: No adverse reaction; IV Status: Infusion continued upon admission bm8 Medication: 00:23 VIS not applicable for this client. bm8 Intake: 01:53 IV: 1000ml; Total: 1000ml. bm8 Outcome: 03:09 Decision to Hospitalize by Provider. sp4 04:53 Admitted to ER Hold. Please see [facility] for further documentation. bm8 04:53 Condition: stable 04:53 Instructed on follow up and referral plans. the need for admit, Demonstrated understanding of follow-up care, medications, 14:28 Patient left the ED. aa5 Signatures: Dispatcher [employer] EDMS Erlinda Rodriguez RN RN aa5 iMrella Richard Sergey, MD MD sp4 Grady Thomas RN RN bm8 Ijeoma Lay RN RN al5 Corrections: (The following items were deleted from the chart) 00:18 00:16 Allergies: No Known Allergies; bm8 bm8 00:22 00:16 General: Appears distressed, uncomfortable, Behavior is calm, cooperative, bm8 appropriate for age, bm8 00:22 00:16 Pain: Complains of pain in right mid back, posterior aspect of right lateral bm8 abdomen, anterior aspect of right lateral abdomen and right upper quadrant Pain radiates to right mid back Pain currently is 10 out of 10 on a pain scale. bm8 00:22 00:16 EENT: No deficits noted. No signs and/or symptoms were reported regarding the bm8 EENT system. bm8 00:22 00:16 Neuro: No deficits noted. Level of Consciousness is awake, alert, obeys commands, bm8 Oriented to person, place, time, situation, Appropriate for age bm8 00: 00:16 Cardiovascular: Denies chest pain, Heart tones S1 S2 present Capillary refill < 3 bm8 seconds in bilateral fingers Patient's skin is warm and dry. bm8 00: 00:16 Respiratory: Airway is patent Respiratory effort is even, unlabored, Respiratory bm8 pattern is regular, symmetrical, Breath sounds are clear bilaterally. bm8 00: 00:16 GI: Abdomen is flat, non-distended, Bowel sounds present X 4 quads. Abdomen is bm8 tender to palpation in right upper quadrant Reports upper abdominal pain, nausea, Pain is 10 out of 10 on a pain scale. vomiting, bm8 00: 00:16 : No signs and/or symptoms were reported regarding the genitourinary system. bm8bm8 00: 00:16 Derm: No signs and/or symptoms reported regarding the dermatologic system. bm8 bm8 00: 00:16 Musculoskeletal: No signs and/or symptoms reported regarding the musculoskeletal bm8 system. bm8
[2024-09-26] MEDS ORDERED: ACETAMINOPHEN 325 MG TABLET PO PRN (03:15)
[2024-09-26] MEDS: PIPER TAZO 3.375 GM in NA CHLORIDE 0.9% 100 ML IV SCH (03:18)
[2024-09-26] MEDS ORDERED: ONDANSETRON 4 MG/2 ML VIAL IV PRN (03:20)
--- NOTE | 2024-09-26 03:26 | P.HP ---
Certification for Inpatient Patient admitted to: Inpatient With expected LOS: >2 Midnights Practitioner: I am a practitioner with admitting privileges, knowledge of patient current condition, hospital course, and medical plan of care. Services: Services provided to patient in accordance with Admission requirements found in Title 42 Section 412.3 of the Code of Federal Regulations Patient History Date of Service: 09/26/24 Reason for admission: abdominal pain History of Present Illness: 38-year-old female with history of of diabetes, hypertension, hypothyroidism, fibromyalgia, Conor's, amoxicillin allergy presents to the ER with complaints of right upper quadrant abdominal pain nausea and vomiting. She reports that she went to outside ER on September 20, 2024. Diagnosed with cholelithiasis. Subsequently her symptoms have been persistent. In the emergency room she had an ultrasound and CT scan of the abdomen. Which showed cholelithiasis without evidence of cholecystitis. General surgery was consulted. Recommended admission for evaluation for laparoscopic cholecystectomy. Her labs reviewed. Noted to have hypokalemia Allergies amoxicillin Allergy (Verified 09/26/24 03:47) Itching/Hives/Rash Review of Systems 10-point ROS is otherwise unremarkable Gastrointestinal: Nausea, Vomiting, Abdominal Pain Physical Examination - Physical Exam General: Alert, Oriented x3 HEENT: Atraumatic, Normocephalic Respiratory: Clear to auscultation bilaterally, Normal air movement Cardiovascular: Normal pulses, Regular rate/rhythm Gastrointestinal: Soft and benign, Tenderness Musculoskeletal: No swelling, No contractures Integumentary: No rashes Neurological: Normal speech - Studies Laboratory Data (last 24 hrs) 09/26/24 09/26/24 00:10 00:10 WBC 11.40 H Hgb 14.3 Hct 42.0 Plt Count 444 H Sodium 135 L Potassium 3.3 L BUN 10 Creatinine 0.92 Glucose 129 H Total Bilirubin 0.4 AST 16 ALT 55 Alkaline Phosphatase 95 Lipase 81 H Assessment and Plan - Problems (Diagnosis) (1) Abdominal pain Current Visit: Yes Status: Acute (2) Cholelithiasis Current Visit: Yes Status: Acute (3) Nausea Current Visit: Yes Status: Acute (4) Hypokalemia Current Visit: Yes Status: Acute - Plan 43-year-old female presents with abdominal pain nausea and vomiting Right upper quadrant abdominal pain Cholelithiasis Nausea vomiting Diabetes Hypertension Fibromyalgia Plan: N.p.o., IV fluids as needed analgesics as needed antiemetics Will order Flagyl for now, likely discontinue later today FSBS, sliding scale insulin Await home medication reconciliation Surgery consulted in the ER SCDs Full code - Advance Directives Does patient have a Living Will: No Does patient have a Durable POA for Healthcare: No
[2024-09-26] MEDS ORDERED: POTASSIUM CL 40 MEQ in NA CHLORIDE 0.9% 500 ML IV SCH (04:00)
[2024-09-26] MEDS ORDERED: METRONIDAZOLE 500mg IVPB 500 MG/100 ML BAG IV ONE ×2 (04:28→13:43)
[2024-09-26] MEDS ORDERED: KCL 20 MEQ/100 mL IVPB 100 ML IV ONE ×2 (04:28→06:41)
[2024-09-26] MEDS: METRONIDAZOLE 500mg IVPB 500 MG/100 ML BAG IV SCH (04:30)
[2024-09-26] MEDS: NA CHLORIDE 0.9% 1,000 ML IV SCH (04:45)
[2024-09-26] MEDS: KCL 20 MEQ/100 mL IVPB 100 ML IV SCH (04:45)
[2024-09-26 05:05] VITALS: BMI 23.3
[2024-09-26] MEDS ORDERED: D10W 125 ML IV PRN (08:34)
[2024-09-26] MEDS: INSULIN REGULAR (HUMAN) 100 UNIT/ML SQ SCH (08:34)
[2024-09-26] MEDS ORDERED: GLUCAGON 1 MG/VIAL IM PRN (08:34)
[2024-09-26] MEDS: SUCCINYLCHOLINE 20 MG/ML (10 ML) IV ONE (15:52)
[2024-09-26] MEDS: ROCURONIUM 50 MG/5 ML VIAL IV ONE (15:53)
[2024-09-26] MEDS ORDERED: FENTANYL CITR 100 MCG/2 ML ONE (15:57)
[2024-09-26] MEDS ORDERED: MIDAZOLAM HCL 2 MG/2 ML INJ ONE (15:57)
[2024-09-26] MEDS ORDERED: propofoL 200 MG/20 ML VIAL IV ONE (15:58)
[2024-09-26] MEDS ORDERED: LIDOCAINE 2% MPF 5 ML VIAL ONE (15:58)
[2024-09-26] MEDS ORDERED: EPHEDRINE SULF 50 MG/ML VIAL ONE (15:58)
[2024-09-26] MEDS: CEFOXITIN SODIUM 1 GM/VIAL ONE (16:14)
[2024-09-26] MEDS: NA CHLORIDE 0.9% 1,000 ML ONE (16:20)
--- NOTE | 2024-09-26 16:31 | P.CNS ---
Date of Consult: 09/26/24 PC: I was asked to see this 38-year-old female in the right regards to her right upper quadrant abdominal pain HPC: This patient, who has had a 50 pound weight loss over the last year, presented to the emergency room with severe right upper quadrant abdominal pain for diagnosis and treatment. She describes the pain as being severe, located on the right side of her abdomen underneath her breast, radiating into her back, right under her bra line. She states that this is her first episode with this discomfort. PSHx: NAD PMHx: Diabetic, but getting better control now with her weight loss, hypertension Social Hx: Allergic to amoxicillin, Sys R: No cough, wheeze, shortness of breath. Denies any urinary complaints O/E: Awake alert but very uncomfortable at the moment, vital signs are stable HEENT: Not jaundiced Chest: Chest movement equal bilaterally Abd: Tender in the right upper quadrant with mild guarding [place]: Intact Data: Elevated white cell count, LFTs are normal. Has documented stones on ultrasound Impression: Acute on chronic cholecystitis with cholelithiasis Plan: I will taken the operating room for laparoscopic cholecystectomy with a cholangiogram. The risks of this procedure have been discussed. The possibility of bleeding, infection, injury to bile ducts blood vessels and intestines has been described. The possible need for an open and/or further surgeries and procedures was discussed. She understands and wishes to proceed.
[2024-09-26] MEDS: SUGAMMADEX SODIUM 200 MG/2 ML VIAL IV ONE (16:56)
[2024-09-26] MEDS: Ringers Lactate 1,000 ML IV ONE (18:00)
--- NOTE | 2024-09-26 18:37 | P.OP ---
Preoperative diagnosis: Acute on chronic cholecystitis with cholelithiasis, biliary colic Postoperative diagnosis: The same Primary procedure: Laparoscopic cholecystectomy Secondary procedure: Cholangiogram Anesthesia: General Estimated blood loss: Less than 10 cc Specimen: Open gallbladder and content Findings: Congested gallbladder with patchy necrosis and fibrinous exudate Operative Technique: The patient brought the operating room and placed supine on the table. After the induction of adequate general endotracheal anesthesia, the area of the abdomen was prepped with a DuraPrep solution, she was draped in the usual aseptic manner. Attention was turned towards the umbilicus. After injecting with 0.25% Marcaine, a skin incision was made. This is brought down through the skin and subcutaneous tissue. The Visiport was now used to enter the peritoneal cavity and created pneumoperitoneum to approximately 12 mmHg. The patient was then placed in reverse Trendelenburg, and rolled to the left. We could visualize the right upper quadrant. We could see that there was a markedly inflamed gallbladder with areas of fibrinous material coagulated on the serosal surface. The omentum was also adherent to the body of the gallbladder itself. We could see the what appeared to be developing patchy necrosis of the gallbladder itself. An aspirating needle was used to decompress the gallbladder. This having been done we were now able to place a grasper on it the fundus after placing two 5 mm trocars in the right upper quadrant. The other was placed on the body of the gallbladder. Elevating the gallbladder now we were able to dissect away the adhesions to the serosal surface of the omentum. We were able to identify Ledezma's pouch. A grasper was placed on the Ledezma's pouch, and the other advanced up to the body. Applying lateral traction these adhesions and the serosa the gallbladder was open. Gentle dissection allowed us to expose both the cystic duct and artery. The cystic duct having been identified, a clip was placed between the gallbladder and the cystic duct. An opening was made into the cystic duct through which we obtained a cholangiogram. The cholangiogram demonstrated good flow of contrast into the duodenum, no filling defects were noted. The catheter was withdrawn. Clips were placed on the distal portion of the cystic duct. The cystic artery was identified and clipped in the usual manner. The gallbladder was now dissected free from the liver bed. On the posterior portion there was a area of what was extremely filled on the gallbladder and it open spilling some of the small waxy stones into the peritoneal cavity. We twisted up the gallbladder to prevent any further soilage with the stones. The gallbladder was now dissected free from the liver bed, placed into an Endo Catch. At this point the patient was returned to the neutral position on the OR table. Using the Endo Catch we were able to scoop up most of the stones that had been spilled during the dissection of the gallbladder. The Endo Close pouch was now closed, and the specimen was brought out through the umbilical trocar site. Attention was turned back towards the peritoneal cavity. We looked up underneath the gallbladder fossa, it was now irrigated with a copious amount of a saline solution to ensure adequate hemostasis. The area was then aspirated. The right paracolic gutter was irrigated and aspirated as well. At this point the effluent being clear, and Endo Close was used to approximate the fascial defect at the umbilicus. The trocars were now withdrawn, the pneumoperitoneum collapsed, and the suture tied. [place] were then applied to the skin. At the end of the procedure she was in a stable condition when sent to the recovery room. Needle sponge instrument count were correct. No drains were placed. Complications: None Transferred to: Recovery Room Condition: Good
[2024-09-26] MEDS: HYDROMORPHONE HCL 1 MG/ML INJ ONE (18:55)
--- NOTE | 2024-09-26 19:01 | RAD REPORT ---
EXAM: Cholangiogram in surgery HISTORY: Cholelithiasis FINDINGS: Limited intraoperative fluoroscopic views were taken during a cholangiogram in surgery. Cystic duct injection performed by operating surgeon. The common bile duct is normal in caliber without filling defect. Fluoroscopic time: 0.1 (minutes. IMPRESSION: Unremarkable cholangiogram
[2024-09-26 19:19] VITALS: O2SAT 96
[2024-09-26] MEDS: MORPHINE 2 MG/ML SYR IV PRN (23:59)
[2024-09-27 04:45] LABS: Absolute Basophils 0.1 K/uL (0-0.5); Absolute Eosinophils 0.1 K/uL (0-0.5); Absolute Lymphocytes (CBC) 2.1 K/uL (0.7-4.9); Absolute Monocytes 0.7 K/uL (0.1-1.3); Absolute Neutrophil 8.5 K/uL (1.8-8.0); Basophils % 0.5 % (0-1.3); Eosinophils % 0.6 % (0-4.4); Hematocrit 30.4 % (36.0-45.0); Hemoglobin 10.5 g/dL (12.0-15.0); Lymphocytes % 18.1 % (15.3-44.8); MCH 28.5 pg (27.0-35.0); MCHC 34.5 g/dL (32.0-36.0); MCV 82.3 fL (80-100); MPV 7.3 fL (7.6-11.3); Monocytes % 6.5 % (3.3-12.3); Neutrophils % 74.3 % (41.7-73.7); Platelets 284 thou/uL (152-406); RBC Red Blood Cell Count 3.69 M/uL (3.86-4.86); Red Cell Distribution Width 13.2 % (12.1-15.2)
[2024-09-27 05:12] LABS: Albumin 2.5 g/dL (3.4-5.0); Albumin/Globulin Ratio 0.8 (1.1-1.8); Anion Gap 8.2 mEq/L (5.0-15.0); Bilirubin Total 0.6 mg/dL (0.2-1.0); Globulin 3.2 g/dL (2.3-3.5); Magnesium 1.7 mg/dL (1.6-2.4); Potassium 4.2 mEq/L (3.5-5.1); Protein, Total 5.7 g/dL (6.4-8.2)
[2024-09-27 12:15] VITALS: BP 129/78; TEMP 98
== END 2024-09-27 13:12 | disposition home or self-care (01) | DRG 419 ==
LOC: ER 23:23 → ERHOLD 09-26 03:15 → 2ND 09-26 14:00
PROVIDERS: ADMIT Internal Medicine; ATTEND Hospitalist
PROC: BF10YZZ Fluoroscopy of Bile Ducts using Other Contrast (ICD-10-PCS; 2024-09-26)
PROC: 0FT44ZZ Resection of Gallbladder, Percutaneous Endoscopic Approach (ICD-10-PCS; principal; 2024-09-26 16:00)
DX: K80.12 Calculus of gallbladder with acute and chronic cholecystitis without obstruction (principal); E11.40 Type 2 diabetes mellitus with diabetic neuropathy, unspecified; I10 Essential (primary) hypertension; E06.3 Autoimmune thyroiditis; M79.7 Fibromyalgia; E87.6 Hypokalemia; R11.2 Nausea with vomiting, unspecified; Z88.0 Allergy status to penicillin
CPT/HCPCS: 36415; 74177; 74300; 76705; 80053; 81001; 81025; 82947; 83690; 83735; 84443; 85025; 88304; 94010; 96361; 96374; 96375; 99285; J0694; J1171; J2003; J2250; J2270; J2405; J2704; J2765; J3010; J3480; J7030; J7120; Q9967